=== PATIENT | male | born 1995 | race Caucasian/White ===

== ENCOUNTER 2023-10-02 18:24 | Emergency (ER) | payer OTHER ==
[~2023-10-02] VITALS: Ht 182.9 cm; Wt 90.9 kg
[2023-10-02] MEDS ORDERED: Acetaminophen 500 MG TAB PO ONE (20:00)
[2023-10-02] MEDS ORDERED: traMADol 50 MG TAB PO ONE (20:00)
[2023-10-02] MEDS ORDERED: Cyclobenzaprine 10 MG TAB PO ONE (20:00)
[2023-10-02] MEDS ORDERED: Ketorolac 30 MG/ML VIAL IM ONE (20:00)
[2023-10-02] MEDS ORDERED: ASPIRIN 81M81 MG/TA2 PO (20:37)
[2023-10-02] MEDS ORDERED: LIPITOR 80MG80 MG PO (20:38)
[2023-10-02] MEDS ORDERED: QUESTRAN4 GM/9 GM PO (20:39)
[2023-10-02] MEDS ORDERED: PLAVIX 75MG TAB75 MG PO (20:40)
[2023-10-02] MEDS ORDERED: HALDOL 5MG T5 MG/TAB PO (20:41)
[2023-10-02] MEDS ORDERED: GLUCOPHAGE500 MG/TAB PO (20:42)
[2023-10-02] MEDS ORDERED: BENICAR 20MG TA20 MG PO (20:43)
[2023-10-02] MEDS ORDERED: TOPROL XL 50MG50 MG PO (20:43)
[2023-10-02] MEDS ORDERED: PROTONIX 40MG T40 MG PO (20:44)
[2023-10-02] MEDS ORDERED: diazePAM 5 MG TAB PO ONE (20:45)
[2023-10-02 22:07] VITALS: BP 125/80; PULSE 70; TEMP 98.2
== END 2023-10-02 22:07 | disposition home or self-care (01) ==
LOC: COL.ER 18:24
DX: S39.012A Strain of muscle, fascia and tendon of lower back, initial encounter (principal); X50.0XXA Overexertion from strenuous movement or load, initial encounter; Y93.F2 Activity, caregiving, lifting
CPT/HCPCS: J1885